=== PATIENT | male | born 1980 | race Caucasian/White ===

== ENCOUNTER 2017-01-27 19:06 | Emergency (ER) | payer SELFPAY ==
--- NOTE | 2017-01-27 19:41 | ED Physician Documentation ---
Neuro Symptoms - HISTORIAN Historian: patient - HPI Stated Complaint: left sided weakness, left facial weakness Chief Complaint: Neurological Deficits Additional Information: is inmate at longterm. was eating dinner, felt his left side start to be numb and tingling, left room and went to bunk. couldn't use left side arms or legs. states had slurred speech and slobbering, with Left eye watering. This lasted approx 30 minutes. Now back to normal. One previous similar episode. 2 months ago. Onset: minutes Timing: sudden onset, resolved on arrival to ED Last known Well Date: 01/27/17 Last Known Well Time: 19:41 Last known Well Code/Unknown Code: Known Severity: moderate Context: denies: insect, tick bite, falling injury, head injury Further Comments: no - CHARACTERS OF DEFICIT New Weakness: LUE, LLE, Lt facial Altered Sensation: LUE, LLE, Lt facial Vision Problems: Yes (left eye watering) Impaired Speech/ Swallowing: Yes (slurred) Decreased Ability: weak Cognition is Usually: alert, oriented x3 Gait is Usually: walks w/o assistance Associated Symptoms: chest pain - ROS MENTAL STATUS: none CVS/Resp Upper Extremity Problem: none GI/ DYSPNEA: none MS/SKIN/LYMPH: none Neuro/Psych: anxiety - PAST HX Past History: seizure disorder Surgeries/Procedures: none Allergies/Adverse Reactions: Allergies Allergy/AdvReac Type Severity Reaction Status Date / Time codeine AdvReac Shortness Verified 01/27/17 19:23 of Breath Home Medications: Ambulatory Orders Medication Instructions Recorded NK [NK] 01/27/17 - FAMILY HX Family History: other (dad has seizures) - SOCIAL HX Smoking History: cigarettes Alcohol Use: none Drug Use: none - VITAL SIGNS Vital Signs: Vital Signs Temp Pulse Resp BP Pulse Ox 98.2 F 67 20 131/85 98 01/27/17 19:10 01/27/17 19:10 01/27/17 19:10 01/27/17 19:10 01/27/17 19:10 - REVIEWED ASSESSMENTS Nursing Assessment Reviewed: Yes Vitals Reviewed: Yes ED Results Lab/Radiology - Radiology Radiology Impressions: CT brain unremarkable. - Orders Orders: ED Orders Category Date Time Status CT BRAIN W/O CONTRAST Stat Exams 01/27/17 19:37 Ordered Neuro Symptoms Physical Exam - Physical Exam General Appearance: no acute distress, alert HEENT: no apparent trauma, EOM's intact, PERRL, pharynx nml, airway intact, oral exam nml Neuro/Psych: alert, oriented x3, no evidence of acute CVA, mood/affect nml Cranial Nerves: nml as tested Cerebellar: nml as tested Pheripheral Exam: motor nml, sensation nml Neck: normal inspection Respiratory: no resp distress CVS: reg rate & rhythm Abdomen: non-tender Skin: color nml, no rash Extremities: non-tender, normal range of motion, no evidence of injury, no edema Discharge Clincal Impression: Seizure disorder TIA (transient ischemic attack) Qualifiers: Transient cerebral ischemia type: unspecified Qualified Code(s): G45.9 - Transient cerebral ischemic attack, unspecified Home Medications: Ambulatory Orders NK [NK] 01/27/17 Condition: Stable Disposition: 01 HOME, SELF-CARE Decision to Admit: NO Date of Decison to Admit: 01/27/17 Decision Time: 20:08
[2017-01-27 20:34] VITALS: BP 131/91
--- NOTE | 2017-01-28 06:04 | Diagnostic Imaging Report ---
Report Submission Date: Jan 27, 2017 8:01:17 PM CDT Patient ~ Study Name: DAVID DISLA ~ Date: Jan 27, 2017 7:41:34 PM CDT ~ Modality Type: CT\SR Gender: M ~ Description: CT BRAIN S : 76 ~ Institution: [facility] Physician: DELMY SILVESTRE ~ ~ ~ ~ CT HEAD WO CONTRAST History: 36/M COMPLAINS OF STROKE LIKE SYMPTOMS X 2 HRS; UNABLE TO MOVE LEFT ARM ; Technique: Standard noncontrast CT was performed with contiguous axial images acquired from skull base to vertex. Findings: There is no acute extra-axial fluid collection. Ventricles are of normal size, shape, and morphology. No mass effect or midline shift is present. No evidence of acute hemorrhage. The~burrows-white matter differentiation is normal. The visualized portions of the orbits, and paranasal sinuses, and mastoids are normal. No fractures are identified. Impression: 1. Normal non contrast brain CT. ~ Electronically signed on Jan 27, 2017 8:01:17 PM CDT by: Stefan SAHU
== END 2017-01-27 20:18 | disposition home or self-care (01) ==
LOC: ED 19:06
DX: G45.9 Transient cerebral ischemic attack, unspecified (principal)
CPT/HCPCS: 70450; 99283; 99284; S1016